=== PATIENT | male | born 1935 | race Caucasian/White ===

== ENCOUNTER 2021-01-03 21:27 | Inpatient (IN) | payer MEDICARE ==
[~2021-01-03] VITALS: Ht 170.2 cm; Wt 70.8 kg
--- NOTE | 2021-01-03 21:30 | NUR ---
PATIENT WAS MSE BY DR PEDERSON.
[2021-01-03] MEDS ORDERED: IV NORMAL SALINE 250 ML IV ONE (21:49)
[2021-01-03] MEDS ORDERED: IOHEXOL 350 100 ML INFUS..BTL ONE (21:49)
[2021-01-03] MEDS ORDERED: SWABABLE VALVE TRANSFER SET EA MC ONE (21:49)
[2021-01-03 22:04] LABS: HEMATOCRIT 45.7 % (36.7-47.1); MEAN CORPUSCULAR HEMOGLOBIN 33.9 uug (23.8-33.4); MEAN CORPUSCULAR VOLUME 100.7 fL (73.0-96.2); PLATELET COUNT (AUTO) 184 K/uL (152-348)
[2021-01-03 22:11] LABS: CREATININE 1.2 mg/dL (0.6-1.3); POTASSIUM 4.3 mmol/L (3.5-5.1)
[2021-01-03] MEDS ORDERED: ASPIRIN 81 MG TAB.CHEW PO ONE (22:30)
[2021-01-03] MEDS ORDERED: ENOXAPARIN SODIUM 80 MG/0.8 ML DISP.SYRIN SQ ONE (22:30)
[2021-01-03] MEDS ORDERED: ENOXAPARIN SODIUM 100 MG/ML DISP.SYRIN SQ ONE (22:46)
[2021-01-03] MEDS ORDERED: ASPIRIN 81 MG TAB.CHEW ONE (22:46)
[2021-01-03] MEDS ORDERED: CLONIDINE HCL 0.1 MG TABLET PO PRN (23:45)
[2021-01-03] MEDS ORDERED: HYDROCODONE/APAP 5-325MG TABLET PO PRN (23:45)
[2021-01-03] MEDS ORDERED: ACETAMINOPHEN 325 MG TABLET PO PRN (23:45)
[2021-01-03] MEDS ORDERED: ONDANSETRON 4 MG/2 ML VIAL IV PRN (23:45)
[2021-01-04] MEDS ORDERED: CYANOCOBALAMIN 1000 MCG/ML VIAL SUBCUT ONE (01:15)
[2021-01-04] MEDS ORDERED: CYANOCOBALAMIN 1000 MCG/ML VIAL ONE (01:31)
[2021-01-04] MEDS ORDERED: TEMAZEPAM 7.5 MG CAPSULE PO PRN (02:00)
--- NOTE | 2021-01-04 03:48 | NUR ---
Patient is resting comfortably in bed with eyes closed
--- NOTE | 2021-01-04 07:43 | NUR ---
85 years old male alert, oriented x2 verbally responsive presents to er with right side numbness being treated for cva, patient with poor safety awareness out of bed without assist vital stable will continue to monitor, denies sob cp.
--- NOTE | 2021-01-04 07:44 | NUR ---
ask the pt patricia if he has any past medical hx. pt deneis any past medical hx and denies that he takes any medicine at home.
--- NOTE | 2021-01-04 08:30 | NUR ---
CALLED ONEL AT [facility] FOR MRI. ONEL SAID TO SEND THE PT IRENE. CALLED [facility] FOR TRANSFER, ETA 40-60 MINUTES. CALLED ONEL AND LEFT A MESSAGE WITH ETA.
[2021-01-04 08:33] LABS: HEMATOCRIT 46.5 % (36.7-47.1); MEAN CORPUSCULAR HEMOGLOBIN 34.5 uug (23.8-33.4); MEAN CORPUSCULAR VOLUME 100.5 fL (73.0-96.2); PLATELET COUNT (AUTO) 175 K/uL (152-348)
[2021-01-04] MEDS ORDERED: CLOPIDOGREL 75 MG TABLET PO SCH (09:00)
[2021-01-04] MEDS ORDERED: ASPIRIN EC 81 MG TABLET.DR PO SCH (09:00)
[2021-01-04] MEDS ORDERED: PANTOPRAZOLE SODIUM 40 MG VIAL IV SCH (09:00)
[2021-01-04 09:05] LABS: THYROID STIMULATING HORMONE 1.595 mIU/mL (0.358-3.740)
[2021-01-04 09:09] LABS: BILIRUBIN,TOTAL 0.9 mg/dL (0.2-1.0); CREATININE 1.2 mg/dL (0.6-1.3); MAGNESIUM 2.2 mg/dL (1.8-2.4); PHOSPHOROUS 2.6 mg/dL (2.5-4.9); TOTAL PROTEIN, SERUM 7.1 g/dL (6.4-8.2)
[2021-01-04] MEDS ORDERED: CLOPIDOGREL 75 MG TABLET ONE (09:11)
[2021-01-04] MEDS ORDERED: PANTOPRAZOLE SODIUM 40 MG VIAL ONE (09:11)
--- NOTE | 2021-01-04 09:35 | NUR ---
DR. VARGAS, PT'S OWN PMD AND FAMILY FRIEND, CAME AND VISIT THE PT. DR. VARGAS AND PT DECIDED TO SIGN AMA. DR. VARGAS WILL ASSUME THE CARE OF THE PT. Addendum: 01/04/21 [address] VARGAS ALSO HAS POWER CAREER SERVICES MANAGER OF THE PT.
--- NOTE | 2021-01-04 09:37 | NUR ---
Patient does not wish to proceed with medical care recommended by Dr. Frida ARMSTRONG ). Patient and Dr. harris given information related to possible complications, up to and including , which could occur as a result of leaving the hospital at this time. Patient verbalizes understanding of risks involved due to leaving against medical advice. Patient has signed AMA form. acopy of the all the studies provided per pt request.
--- NOTE | 2021-01-04 09:45 | NUR ---
CALLED ONEL AT [facility], AND [facility] TO CNACEL THE DEAL.
--- NOTE | 2021-01-04 09:49 | NUR ---
CALLED [facility] AND INFORMED THEM THE PT LEFT AMA.
[2021-01-04 10:04] VITALS: BP 128/62
[2021-01-04] MEDS ORDERED: DOCUSATE SODIUM 100 MG CAPSULE PO SCH (21:00)
[2021-01-06] MEDS ORDERED: PANTOPRAZOLE SODIUM 40 MG TABLET.DR PO SCH (07:00)
== END 2021-01-04 09:49 | disposition left against medical advice (07) | DRG 65 ==
LOC: ER 21:32 → TRANSITION 01-04 01:44
PROVIDERS: ADMIT Internal Medicine; ATTEND Internal Medicine
DX: I63.9 Cerebral infarction, unspecified (principal); G81.91 Hemiplegia, unspecified affecting right dominant side; I10 Essential (primary) hypertension; E03.9 Hypothyroidism, unspecified; Z91.02 Food additives allergy status; Z91.011 Allergy to milk products; I65.22 Occlusion and stenosis of left carotid artery
CPT/HCPCS: 36415; 70030-TC; 70450; 70496; 71045; 82747; 83735; 84100; 84443; 85014; 85025; 85651; 85730; 93005; A4663; C9113; G0378; J1650; J3420; J7050; Q9967